=== PATIENT | male | born 1960 | race Caucasian/White ===

== ENCOUNTER 2019-03-22 14:19 | Inpatient (IN) | payer SELFPAY ==
[2019-03-22] MEDS ORDERED: Diltiazem HCl 125 MG, Admixture Fee 1 EACH in Sodium Chloride 0.9% 100 ML IVPB SCH (15:00)
--- NOTE | 2019-03-22 15:00 | RAD ---
Portable chest: HISTORY: Dyspnea COMPARISON: none FINDINGS:Lung blunt are well aerated. There is question of patchy infiltrate in the right lung base. Lungs otherwise appear clear. Heart and mediastinum unremarkable. IMPRESSION:Question patchy right lower lung infiltrate, suboptimally evaluated on this exam. Recommen d upright PA and lateral views of chest.
[2019-03-22 15:19] LABS: #Basophils 0.1 thou/uL (0.0-0.2); #Eosinphils 0.2 thou/uL (0.0-0.7); #Lymphocytes 1.4 thou/uL (1.20-3.40); #Neutrophils 8.2 thou/uL (1.40-6.50); %Basophils 0.5 % (0.0-1.0); %Eosinophils 2.3 % (0.0-10.0); %Lymphocytes 13.3 % (21.0-51.0); %Monocytes 8.8 % (0.0-10.0); %Neutrophils 75.1 % (42.0-75.0); Hemoglobin 15.1 g/dL (14.0-18.0); Mean Corpuscular HGB CONC 34.6 g/dL (32.0-36.0); Mean Corpuscular Hemoglobin 34.3 pg (27.0-31.0); Mean Corpuscular Volume 99.2 fL (78.0-98.0); Mean Platelet Volume 8.5 fL (7.4-10.4); Platelet Count 247 thou/uL (130-400); RBC Distribution Width 11.9 % (11.5-14.5); Red Blood Cell (RBC) Count 4.41 mill/uL (4.70-6.10); White Blood Cell (WBC) Count 10.9 thou/uL (4.8-10.8)
[2019-03-22] MEDS ORDERED: Magnesium 2 GM/50 ML BAG (IN WATER) ONE (15:23)
[2019-03-22 15:26] LABS: INR-International Normal Ratio 1.1; PTT 44.2 SEC (22.9-36.1); Prothrombin Time 14.3 SEC (12.0-14.7)
[2019-03-22 15:34] LABS: D-Dimer Test 5.47 *mcg/mL (0.27-0.43)
[2019-03-22 15:40] LABS: ALT (SGPT) 40 U/L (8-55); AST (SGOT) 35 U/L (5-34); Alkaline Phosphatase 94 U/L (40-110); Anion Gap 13 mmol/L (10-20); BUN (Urea Nitrogen) 18 mg/dL (8.4-25.7); Bilirubin, Total 0.8 mg/dL (0.2-1.2); Calc. Creatinine Clearance 0 mL/min (70-130); Calcium 9.5 mg/dL (7.8-10.44); Carbon Dioxide 26 mmol/L (22-29); Chloride 105 mmol/L (98-107); Estimated GFR-MDRD 77; Globulin 3.4 g/dL (2.4-3.5); Glucose 102 mg/dL (70-105); Potassium 4.3 mmol/L (3.5-5.1); Protein, Total 7.4 g/dL (6.0-8.3); Sodium 140 mmol/L (136-145)
--- NOTE | 2019-03-22 19:04 | CT ---
CT ANGIOGRAM THORAX WITH IV CONTRAST AND 3D RECONSTRUCTIONS: 03/22/19 HISTORY: Shortness of breath and decreased oxygen saturation. History of atrial fibrillation. COMPARISON: None. FINDINGS: There are filling defects seen in multiple right upper lobe segmental and subsegmental pulmonary mariano azeb as well as involving left upper lobe and left lower lobe segmental and subsegmental pulmonary ar teries compatible with multiple pulmonary emboli. There is a small filling defect also seen in the le ft main pulmonary which extends into a left upper lobe pulmonary artery. The thoracic aorta is normal in caliber without aortic dissection. There are scattered lymph nodes in the mediastinum which are not enlarged by CT size criteria. There are linear minimal patchy densities at the right lung base which could be related to atelectasi s, but pneumonitis is a possibility. There is linear atelectasis versus scarring at the left lung bas e. No consolidation or pleural fluid is appreciated. There is incomplete imaging of an exophytic hypodense lesion at the lateral aspect of the mid portion right kidney which does not demonstrate attenuation coefficient compatible with a cyst based on this exam, but this may be artifactual. Nonemergent renal sonogram is recommended for further evaluation. Remainder of the upper abdomen has a grossly normal CT appearance for phase of imaging. IMPRESSION: 1. Bilateral pulmonary emboli. 2. Linear and patchy densities right lung base which may be related to atelectasis, but pneumoni tis cannot be excluded. Follow-up evaluation is suggested to ensure resolution. 3. Hypodense exophytic lesion right kidney which does not demonstrate attenuation coefficient co mpatible with simple renal cyst. However, this attenuation could be artifactual, and follow-up renal sonogram is recommended. 4. Above findings discussed with Dr. Landin in the Emergency Department on 03/22/19 at 1817 [address]. POS: [facility]
[2019-03-22] MEDS ORDERED: Enoxaparin Sodium 100 MG/ML SYRINGE ONE (19:54)
[2019-03-22] MEDS ORDERED: Enoxaparin Sodium 60 MG/0.6 ML SYRINGE ONE ×2 (19:54→19:55)
[2019-03-22 20:04] LABS: Troponin I Less than 0.010 ng/mL (< 0.028)
[2019-03-22 22:50] LABS: Troponin I Less than 0.010 ng/mL (< 0.028)
[2019-03-22] MEDS ORDERED: Ondansetron ODT 4 MG TAB PO PRN (22:55)
[2019-03-22] MEDS ORDERED: Acetaminophen 325 MG TAB PO PRN (22:55)
--- NOTE | 2019-03-22 22:58 | PDOC.HHP ---
Hospitalist HPI - History of Present Illness shortness of breath History of Present Illness: This is a 58 year old male with past medical history of hypertension, atrial fibrillation who presented to the emergency room with worsening shortness of breath. The patient states that he has been short of breath with exertion for the past two weeks. Over the last few days, he has hardly been able to walk twenty feet without getting short of breath. He has some orthopnea and sleeps on four pillows at night for years. He denies PND. He had a cold recently and since then has been having a productive cough of white phlegm. He denies chest pain, palpitations, fevers or chills. The patient recently his and drove for 2.5 days from [place] to [place] to move back in with his mother who is sick. He noticed that his left leg started swelling three days ago and it was painful to walk. He had an artery cauterized previously in that leg 4-5 years ago due to bleeding. He has no history of COPD to his knowledge. He has never smoked, but does chew tobacco. The patient has a prior history of atrial fibrillation and hypertension and states he was on 12 medications back in [place], but stopped them 5-6 years ago because they were making him dizzy. He does not remember the names of the medicines. Since then he has not had any recurrence of atrial fibrillation to his knowledge. He says his atrial fibrillation was diagnosed incidentally when he went in for a broken bone. He does not recall if he was ever on a blood thinner. He denies previous history of CAD. 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 ED Course: Vitals on presentation showed a BP of 153/113, HR of 126, oxygen saturation of 97% on room air, afebrile. The patient had an EKG which showed atrial fibrillation with RVR. Labs showed WBC of 10.9, AST of 35, normal troponins. Chest X ray showed possible RLL infiltrate. CTA shows bilateral pulmonary emboli. The patient was given therapeutic lovenox and started on a diltiazem drip. He was also given duoneb and 2 grams of magnesium. Heart rate is currently in the 90's. Hospitalist ROS - Review of Systems Constitutional: denies: fever, chills ENT: denies: ear pain, ear discharge Respiratory: reports: cough, shortness of breath, SOB with excertion. denies: hemoptysis, pleuritic pain, sputum Cardiovascular: reports: edema. denies: chest pain, palpitations, orthopnea, paroxysmal noc. dyspnea Gastrointestinal: denies: nausea, vomiting, abdominal pain, diarrhea, constipation Genitourinary: denies: dysuria, frequency Musculoskeletal: denies: neck pain, shoulder pain Skin: denies: rash, lesions Neurological: denies: weakness Hospitalist History - Past Medical History Cardiac: reports: AFIB, HTN Musculoskeletal: reports: Other (bones deteriorating right wrist, arthritis in knees and ankles) - Past Surgical History Other Surgical History: Had artery cauterized in left leg 5-6 years ago because it was broken - Family History Other Family History: Brother had atrial fibrillation - Social History Tobacco Type: chewing tobacco Alcohol: reports: Occassional Drugs: reports: none Living Situation: Other (lives with mother) Domestic Violence: Negative Activity level: independent ambulation Other Social History: Patient recently two weeks ago. Was living in [place] and just moved back here two weeks ago. Previously grew up in this area and lives with his mother - Exam General Appearance: NAD, awake alert General - other findings: overweight Eye: PERRL, anicteric sclera ENT: normocephalic atraumatic, no oropharyngeal lesions Neck: supple, symmetric, no JVD, no thyromegaly Heart: no murmur, no gallops, no rubs, irregular Respiratory - other findings: bilateral wheezing Gastrointestinal: soft, non-tender, non-distended Extremities: no cyanosis, no clubbing Extremities - other findings: significant swelling LLE compared to right, tender to palpation Skin: normal turgor, no lesions, no rashes Neurological: cranial nerve grossly intact, normal sensation to touch, no focal deficits, no new deficit Musculoskeletal: normal tone, normal strength, no muscle wasting Psychiatric: normal affect, normal behavior, A&O x 3, oriented to person Hospitalist Results - Labs Result Diagrams: 03/22/19 15:09 03/22/19 15:09 Lab results: WBC 10.9 thou/uL (4.8-10.8) H 03/22/19 15:09 Hgb 15.1 g/dL (14.0-18.0) 03/22/19 15:09 Hct 43.7 % (42.0-52.0) 03/22/19 15:09 MCV 99.2 fL (78.0-98.0) H 03/22/19 15:09 Plt Count 247 thou/uL (130-400) 03/22/19 15:09 Neutrophils % 75.1 % (42.0-75.0) H 03/22/19 15:09 Sodium 140 mmol/L (136-145) 03/22/19 15:09 Potassium 4.3 mmol/L (3.5-5.1) 03/22/19 15:09 Chloride 105 mmol/L (98-107) 03/22/19 15:09 Carbon Dioxide 26 mmol/L (22-29) 03/22/19 15:09 BUN 18 mg/dL (8.4-25.7) 03/22/19 15:09 Creatinine 1.00 mg/dL (0.7-1.3) 03/22/19 15:09 Glucose 102 mg/dL (70-105) 03/22/19 15:09 Lactic Acid 1.5 mmol/L (0.5-2.2) 03/22/19 15:09 Calcium 9.5 mg/dL (7.8-10.44) 03/22/19 15:09 Total Bilirubin 0.8 mg/dL (0.2-1.2) 03/22/19 15:09 AST 35 U/L (5-34) H 03/22/19 15:09 ALT 40 U/L (8-55) 03/22/19 15:09 Alkaline Phosphatase 94 U/L (40-110) 03/22/19 15:09 Troponin I Less than 0.010 ng/mL (< 0.028) 03/22/19 22:17 B-Natriuretic Peptide 38.4 pg/mL (0-100) 03/22/19 15:09 Serum Total Protein 7.4 g/dL (6.0-8.3) 03/22/19 15:09 Albumin 4.0 g/dL (3.5-5.0) 03/22/19 15:09 - EKG Interpretation EKG: atrial fibrillation with RVR Hospitalist H&P A/P - Plan Plan: Chest X ray: patchy right lower lung infiltrate CTA thorax: bilateral pulmonary emboli, patchy densities right lung base, simple renal cyst This is a 58 year old male with past medical history of hypertension, atrial fibrillation, who presented to the ER with shortness of breath for the past few weeks and left lower extremity swelling for the past three days, found to be in atrial fibrillation with RVR and admitted for PE #Bilateral pulmonary emboli #Peripheral edema worst on LLE - CTA showing bilateral pulmonary emboli - start lovenox 170 mg SC BID, transition to oral can be done eventually - check bilateral dopplers - ECHO. BNP was only 38 so will hold diuretics #Possible RLL pneumonia vs acute bronchitis - has productive cough with significant wheezing, Xray showing possible infiltrate right lower lung. WBC of 10.9 - check viral panel given recent cold - will administer IV levaquin, standing duoneb and prn albuterol, mucinex, and steroids #Atrial fibrillation secondary to PE #Hypertensive urgency - HR in the 120's on admission, BP 156/113 - currently on cardizem drip, will attempt to wean off by adding oral diltiazem - troponin negative times three - will check ECHO - cardiology consult - needs long-term anticoagulation, CHADSVASC 3 #Leukocytosis - possibly pneumonia - WBC of 10.9, will check blood cultures. CTA showing possible RLL pneumonia, start IV levaquin - check UA - check viral panel #Possible renal cyst - will further evaluate with renal ultrasound GI prophylaxis: famotidine DVT prophylaxis: lovenox Code status: full code
[2019-03-22] MEDS ORDERED: Albuterol Sulfate 1.25 MG/3 ML NEB NEB PRN (23:11)
[2019-03-22] MEDS ORDERED: Benzonatate 100 MG CAP PO PRN (23:13)
[2019-03-22] MEDS ORDERED: methylPREDNISolone Sod Succ 40 MG VIAL IVP SCH (23:15)
[2019-03-22] MEDS ORDERED: guaiFENesin ER 600 MG TAB PO SCH (23:30)
[2019-03-23 00:55] VITALS: BMI 48.2
[2019-03-23 01:48] LABS: Bacteria/HPF None Seen HPF (None Seen); Bilirubin Negative (Negative); Blood, Urine Negative (Negative); Clarity Clear (Clear); Glucose, Urine (Dipstick) Normal (Negative); Leukocyte Negative Leu/uL (Negative); Mucous/LPF Rare LPF (<2+); Nitrite Negative (Negative); Protein, Urine (Dipstick) 10 mg/dL (Neg-Trace); RBC/HPF 0-3 HPF (0-3); Squamous Epithelial 0-3 HPF (0-3); Urobilinogen Normal mg/dL (Less than 2); WBC/HPF 0-3 HPF (0-3)
[2019-03-23 01:50] LABS: Urine Culture Reflex No No
[2019-03-23 04:07] LABS: #Eosinphils 0.2 thou/uL (0.0-0.7); #Lymphocytes 1.3 thou/uL (1.20-3.40); #Monocytes 0.6 thou/uL (0.11-0.59); #Neutrophils 7.8 thou/uL (1.40-6.50); %Basophils 0.4 % (0.0-1.0); %Eosinophils 2.4 % (0.0-10.0); %Lymphocytes 12.8 % (21.0-51.0); %Monocytes 5.5 % (0.0-10.0); Hemoglobin 13.8 g/dL (14.0-18.0); Mean Corpuscular HGB CONC 34.7 g/dL (32.0-36.0); Mean Corpuscular Hemoglobin 34.5 pg (27.0-31.0); Mean Corpuscular Volume 99.4 fL (78.0-98.0); Mean Platelet Volume 8.4 fL (7.4-10.4); Platelet Count 224 thou/uL (130-400); RBC Distribution Width 11.5 % (11.5-14.5); Red Blood Cell (RBC) Count 4.01 mill/uL (4.70-6.10); White Blood Cell (WBC) Count 9.9 thou/uL (4.8-10.8)
[2019-03-23 04:24] LABS: Anion Gap 13 mmol/L (10-20); BUN (Urea Nitrogen) 15 mg/dL (8.4-25.7); Calc. Creatinine Clearance 232 mL/min (70-130); Calcium 8.9 mg/dL (7.8-10.44); Carbon Dioxide 25 mmol/L (22-29); Chloride 106 mmol/L (98-107); Estimated GFR-MDRD Greater than 90; Glucose 98 mg/dL (70-105); Potassium 4.3 mmol/L (3.5-5.1); Sodium 140 mmol/L (136-145)
[2019-03-23 04:28] LABS: ALT (SGPT) 36 U/L (8-55); AST (SGOT) 32 U/L (5-34); Albumin 3.6 g/dL (3.5-5.0); Alkaline Phosphatase 85 U/L (40-110); Bilirubin, Direct 0.6 mg/dL (0.1-0.3); Bilirubin, Total 1.2 mg/dL (0.2-1.2); Protein, Total 6.7 g/dL (6.0-8.3)
[2019-03-23] MEDS ORDERED: Enoxaparin Sodium 80 MG/0.8 ML SYRINGE SC SCH (07:00)
[2019-03-23] MEDS ORDERED: predniSONE 20 MG TAB PO SCH (08:00)
--- NOTE | 2019-03-23 09:31 | ULT ---
BILATERAL LOWER EXTREMITY ULTRASOUND WITH VENOUS DOPPLER DUPLEX: CPT: 56133 ICD-10-PCS: B54D INDICATIONS: Edema. TECHNIQUE: Color-flow Doppler, spectral wave-form analysis of pulsed Doppler and francois-scale imaging with leila lev and augmentation were used to evaluate the bilateral common femoral, femoral, popliteal, posteri or tibial and superficial femoral veins and the proximal portions of the profunda femoral and greater saphenous veins. FINDINGS: There is appropriate compressibility and flow within the imaged deep venous system of each lower extr emity. Note is made that the posterior tibial vein in the left lower extremity is not visualized for comment. IMPRESSION: No deep venous thrombosis is demonstrated within limitations. POS: [facility]
--- NOTE | 2019-03-23 09:33 | CON ---
DATE OF CONSULTATION: REASON FOR CONSULTATION: Chronic atrial fibrillation with rapid ventricular response. HISTORY OF PRESENT ILLNESS: Mr. Galeana is a 58-year-old gentleman with history of chronic atrial fibrillation. He states he has had atrial fibrillation over the last 5 years. He has been on Coumadin therapy and medications for rate control, but states it caused dizziness. He abruptly stopped all his medications several years ago. He states he was not able to work. Recently, he moved from [place] after his . He had a long car trip. He developed lower extremity edema and shortness of breath. He was diagnosed with bilateral PE. PAST MEDICAL HISTORY: Hypertension, atrial fibrillation, morbid obesity, and likely obstructive sleep apnea. FAMILY HISTORY: Negative for CAD. SOCIAL HISTORY: Positive for chewing tobacco. Occasional alcohol use. He is morbidly obese. REVIEW OF SYSTEMS: A 10-point review of systems is reviewed as above, otherwise negative. PHYSICAL EXAMINATION: GENERAL: He does appear disheveled and morbidly obese. VITAL SIGNS: Blood pressure 144/94, pulse 83, and temperature afebrile. He is currently on IV Cardizem at 5 mg/hour. NEUROLOGIC: The patient is alert and oriented x3 with no focal neurologic deficits. HEENT: Sclerae without icterus. Mouth has moist mucous membranes with normal pallor. NECK: No JVD. Carotid upstroke brisk. No bruits bilaterally. LUNGS: Clear to auscultation with unlabored respirations. BACK: No scoliosis or kyphosis. CARDIAC: Irregularly irregular. ABDOMEN: Soft, nontender, nondistended. No peritoneal signs present. No hepatosplenomegaly. No abnormal striae. EXTREMITIES: 2+ femoral and 2+ dorsalis pedis pulses. No cyanosis, clubbing, or edema. SKIN: No gross abnormalities. PERTINENT LABORATORY DATA: Hemoglobin 13.8 and hematocrit 39.9. Creatinine 0.79. Troponin negative. IMPRESSION: 1. Atrial fibrillation with rapid ventricular response. 2. Recently diagnosed pulmonary embolism. 3. Likely obstructive sleep apnea. 4. Morbid obesity. RECOMMENDATIONS: At this point, we will recommend continue rate control. We will try and increase Cardizem p.o. and wean off the IV Cardizem. We will give him one dose of IV digoxin. Once he is rate controlled, it will be okay to discontinue IV and follow up as outpatient. He will also need anticoagulation therapy chronically for recent PE and DVT in addition to atrial fibrillation. He will also need an outpatient sleep study. Job ID: [id number]
[2019-03-23] MEDS: guaiFENesin ER 600 MG TAB PO SCH ×2 (09:40→20:54)
[2019-03-23] MEDS: Enoxaparin Sodium 80 MG/0.8 ML SYRINGE SC SCH ×2 (09:40→20:57)
[2019-03-23] MEDS: Famotidine 20 MG TAB PO SCH ×2 (09:41→20:54)
--- NOTE | 2019-03-23 09:44 | ULT ---
BILATERAL RENAL ULTRASOUND: INDICATIONS: Renal cyst. FINDINGS: No evidence of hydronephrosis of either kidney. An exophytic hypoechoic focus without evidence of int ernal flow and through transmission of sound is present at the lateral confines of the right kidney, mid portion. This does indicate a benign cyst. Urinary bladder is grossly unremarkable. IMPRESSION: Benign appearing exophytic cyst about the lateral confines of the mid right kidney. Cyst measures willard roximately 3 cm. POS: [facility]
--- NOTE | 2019-03-23 13:39 | CON ---
DATE OF CONSULTATION: 03/23/2019 REASON FOR CONSULTATION: Pulmonary embolism. HISTORY OF PRESENT ILLNESS: Mr. Galeana is a 58-year-old male, who presented with shortness of breath, chest pain, and tachycardia. He was found to be in atrial fibrillation with rapid ventricular response. He was also found to have bilateral pulmonary emboli on his CT scan. He has never had pulmonary emboli in the past, but did have AFib over 5 years ago. He was treated with rate control and anticoagulation, but stopped the medication shortly thereafter because he was dizzy. PAST MEDICAL HISTORY: 1. Atrial fibrillation. 2. Hypertension. Denies diabetes. Denies coronary artery disease. PAST SURGICAL HISTORY: Artery cauterized in his leg 5 to 6 years ago. SOCIAL HISTORY: He chews tobacco. He does not smoke. Does not consume alcohol. from his . He has recently moved back to [place] from [place]. His occupation is mechanical systems designer. REVIEW OF SYSTEMS: Remarkable for obesity. No fever, chills, nausea, vomiting, hematemesis, melena, hematochezia, hematuria, or dysuria. PHYSICAL EXAMINATION: VITAL SIGNS: Temperature 98.4, pulse 97, blood pressure 166/125, and O2 saturation 94%. GENERAL: He is a morbidly obese male, who is 5 feet and 11 inches and is 346 pounds. HEENT: He has class IV Mallampati airway. NECK: Without adenopathy or JVD. LUNGS: Clear without wheezing. CARDIAC: S1 and S2. Irregularly irregular. ABDOMEN: Soft, morbidly obese. EXTREMITIES: No clubbing or cyanosis. He has brawny edema throughout. LABORATORY DATA: White blood cell count 9.9, hematocrit 39.9, and platelet count 224. INR is 1.1. Sodium 140, potassium 4.3, chloride 106, CO2 of 25, BUN 15, creatinine 0.7, and glucose 98. ASSESSMENT: 1. Pulmonary embolism. I have reviewed the CT scan and agree with radiologist's findings. 2. Atrial fibrillation. 3. Obesity. 4. Probable underlying obstructive sleep apnea. RECOMMENDATIONS: 1. For the pulmonary embolism, I would recommend 6 months of anticoagulation. Of course, if he continues atrial fibrillation, he will be anticoagulated indefinitely. I would recommend switching him over to one of the novel anticoagulants if possible. It looks like he may be uninsured, so that may be a difficult task. 2. At some point in the future, I would recommend a sleep study. 3. It is not clear to me why he is on the steroids. I do not suspect that he is infected. Thank you for the consultation. Please recall if further assistance needed. Job ID: [id number]
--- NOTE | 2019-03-23 18:42 | PDOC.HOSPP ---
- Subjective Encounter Date: 03/23/19 Encounter Time: 17:00 Subjective: Patient seen and examined for resp failure/PE. SOB improving. No CP. No new complaints. No overnight events - Objective Vital Signs & Weight: Vital Signs (12 hours) Temp Pulse Pulse Pulse Resp BP BP 03/23/19 18:14 111 H 16 03/23/19 16:05 97.7 F 03/23/19 15:06 98 13 03/23/19 11:16 98.4 F 03/23/19 11:14 100 14 03/23/19 10:35 100 108 H 163/119 H 169/115 H 03/23/19 08:16 03/23/19 08:13 100 14 03/23/19 08:00 03/23/19 07:14 98.0 F Pulse Ox Pulse Ox Pulse Ox 03/23/19 18:14 96 03/23/19 16:05 03/23/19 15:06 95 03/23/19 11:16 03/23/19 11:14 03/23/19 10:35 93 L 95 03/23/19 08:16 93 L 03/23/19 08:13 96 03/23/19 08:00 97 03/23/19 07:14 Weight Weight 346 lb Most Recent Monitor Data Heart Rate from ECG 110 NIBP 159/117 NIBP BP-Mean 131 Respiration from ECG 19 SpO2 94 I&O: 03/22/19 03/23/19 03/24/19 06:59 06:59 06:59 Intake Total 200 Output Total 650 Balance -450 Result Diagrams: 03/23/19 03:24 03/23/19 03:24 Radiology Reviewed by me: Yes (CTA - PE) EKG Reviewed by me: Yes (Tele Afib) Hospitalist ROS - Review of Systems Respiratory: reports: SOB with excertion. denies: cough, dry, shortness of breath, hemoptysis, pleuritic pain, sputum, wheezing, other Cardiovascular: denies: chest pain, palpitations, orthopnea, paroxysmal noc. dyspnea, edema, light headedness, other - Medication Medications: Active Medications Generic Name Dose Route Start Last Admin Trade Name Freq PRN Reason Stop Dose Admin Albuterol/Ipratropium 3 ml 03/23/19 02:30 03/23/19 18:14 Duoneb IPPB 3 ml [id number] DECLAN Administration Diltiazem HCl 60 mg 03/23/19 12:00 03/23/19 17:35 Cardizem PO 60 mg Q6HR DECLAN Administration Enoxaparin Sodium 150 mg 03/23/19 09:00 03/23/19 09:40 Lovenox SC 150 mg 0900,2100 DECLAN Administration Famotidine 20 mg 03/23/19 09:00 03/23/19 09:41 Pepcid PO 20 mg BID DECLAN Administration Guaifenesin 600 mg 03/23/19 09:00 03/23/19 09:40 Mucinex PO 600 mg Q12HR DECLAN Administration Levofloxacin 750 mg/ Device 150 mls @ 100 mls/hr 03/22/19 23:59 03/23/19 01: 25 IVPB 150 mls Q24HR DECLAN Administration Prednisone 40 mg 03/23/19 08:00 03/23/19 09:41 Prednisone PO 40 mg QAM-WM DECLAN Administration - Exam General Appearance: NAD Heart: no murmur, no gallops, no rubs, irregular Respiratory: no wheezes, no rales, no ronchi, normal chest expansion Gastrointestinal: non-tender, non-distended, normal bowel sounds, no guarding, no rigidity Extremities: no cyanosis, no clubbing, 2+ LE edema Neurological: no new deficit Psychiatric: normal affect, A&O x 3 Hosp A/P - Plan Acute hypoxic resp failure (POA) B/L PE (POA) Afib with RVR - requiring Cardizem drip ?Acute Bronchitis (POA) Renal cyst Morbid obesity BMI 48.3 HTN CKD 2 ?MAAME PLAN: Cont PO Cardizem Cont Lovenox - Patient understands the risk associated with anticoag Change IV Levaquin to PO Doxycycline Cont Nebs Doppler - No DVT Echo normal EF Sleep study as outpt Cardio/Pulm input appreciated
[2019-03-23] MEDS: Doxycycline 100 MG CAP PO SCH (20:54)
[2019-03-24 04:05] LABS: Hemoglobin 13.2 g/dL (14.0-18.0); Platelet Count 218 thou/uL (130-400)
[2019-03-24 04:26] LABS: Anion Gap 14 mmol/L (10-20); BUN (Urea Nitrogen) 19 mg/dL (8.4-25.7); Calc. Creatinine Clearance 206 mL/min (70-130); Calcium 8.8 mg/dL (7.8-10.44); Carbon Dioxide 25 mmol/L (22-29); Chloride 106 mmol/L (98-107); Estimated GFR-MDRD 88; Glucose 117 mg/dL (70-105); Potassium 3.8 mmol/L (3.5-5.1); Sodium 141 mmol/L (136-145)
[2019-03-24] MEDS: Enoxaparin Sodium 80 MG/0.8 ML SYRINGE SC SCH ×2 (09:41→21:41)
[2019-03-24] MEDS: Famotidine 20 MG TAB PO SCH ×2 (09:41→21:41)
[2019-03-24] MEDS: guaiFENesin ER 600 MG TAB PO SCH ×2 (09:41→21:41)
[2019-03-24] MEDS: Doxycycline 100 MG CAP PO SCH ×2 (09:41→21:40)
[2019-03-24] MEDS ORDERED: Digoxin 0.25 MG TAB PO SCH (10:30)
--- NOTE | 2019-03-24 10:35 | PRG ---
DATE OF SERVICE: SUBJECTIVE: Mr. Galeana is feeling better. No chest pain or pressure. OBJECTIVE: VITAL SIGNS: His heart rate is well controlled at rest. When he even moves around the bed, it goes up to 120-130 range. LUNGS: Clear. CARDIAC: Irregularly irregular. ABDOMEN: Obese, nontender. EXTREMITIES: Moderate chronic edema. ASSESSMENT: 1. Chronic atrial fibrillation. The rate is still increased. 2. Recent pulmonary embolism. PLAN: 1. He is being anticoagulated. 2. We will add digoxin. 3. Change to Cardizem long-acting tomorrow. The patient could be moved to telemetry from our standpoint. Job ID: [id number]
--- NOTE | 2019-03-24 11:11 | PDOC.HOSPP ---
- Subjective Encounter Date: 03/24/19 Encounter Time: 11:09 Subjective: Mr. Galeana was seen today in follow-up of bilateral PE. He says he notes dyspnea with exertion, but admits some improvement at rest. He denies chest pain. - Objective Vital Signs & Weight: Vital Signs (12 hours) Temp Pulse Resp Pulse Ox 03/24/19 10:20 98.5 F 03/24/19 07:43 97 03/24/19 07:40 84 16 97 03/24/19 07:35 98 03/24/19 07:15 97.5 F L 03/24/19 03:31 97.9 F 03/24/19 02:17 98 23 H 97 03/24/19 01:26 94 L 03/23/19 23:30 98.5 F Weight Weight 346 lb Most Recent Monitor Data Heart Rate from ECG 102 NIBP 158/118 NIBP BP-Mean 131 Respiration from ECG 20 SpO2 96 I&O: 03/23/19 03/24/19 03/25/19 06:59 06:59 06:59 Intake Total 200 240 Output Total 650 400 Balance -450 -160 Result Diagrams: 03/24/19 03:52 03/24/19 03:52 Hospitalist ROS - Medication Medications: Active Medications Generic Name Dose Route Start Last Admin Trade Name Freq PRN Reason Stop Dose Admin Albuterol/Ipratropium 3 ml 03/23/19 02:30 03/24/19 07:40 Duoneb IPPB 3 ml [id number] DECLAN Administration Diltiazem HCl 60 mg 03/23/19 12:00 03/24/19 05:27 Cardizem PO 60 mg Q6HR DECLAN Administration Doxycycline Hyclate 100 mg 03/23/19 21:00 03/24/19 09:41 Vibramycin PO 100 mg BID DECLAN Administration Enoxaparin Sodium 150 mg 03/23/19 09:00 03/24/19 09:41 Lovenox SC 150 mg 0900,2100 DECLAN Administration Famotidine 20 mg 03/23/19 09:00 03/24/19 09:41 Pepcid PO 20 mg BID DECLAN Administration Guaifenesin 600 mg 03/23/19 09:00 03/24/19 09:41 Mucinex PO 600 mg Q12HR DECLAN Administration - Exam Eye: PERRL Heart: no murmur, no gallops, no rubs, normal peripheral pulses, irregular Respiratory: CTAB (with the exception of wheeaing, scattered, and some coarse breath sounds), wheezes Gastrointestinal: soft, non-tender, non-distended, normal bowel sounds, no palpable masses, no hepatomegaly Extremities: no cyanosis, no edema Hosp A/P (1) Acute respiratory failure with hypoxemia Code(s): J96.01 - ACUTE RESPIRATORY FAILURE WITH HYPOXIA Status: Acute (2) Pulmonary embolism, bilateral Code(s): I26.99 - OTHER PULMONARY EMBOLISM WITHOUT ACUTE COR PULMONALE Status : Acute (3) Atrial fibrillation Code(s): I48.91 - UNSPECIFIED ATRIAL FIBRILLATION Status: Acute (4) Obesity, morbid, BMI 40.0-49.9 Code(s): E66.01 - MORBID (SEVERE) OBESITY DUE TO EXCESS CALORIES Status: Chronic (5) Hypertension Code(s): I10 - ESSENTIAL (PRIMARY) HYPERTENSION Status: Chronic (6) Acute bronchitis Code(s): J20.9 - ACUTE BRONCHITIS, UNSPECIFIED Status: Acute - Plan * Acute Bilateral Pulmonary Embolus- continue Lovenox for now. Discussed Coumadin vs. DOAC's. the risk benefits and cost discussed. The patient has decided on trying one of the DOAC's. Will see which sample we have for 30 day supply, and switch him over tomorrow * Echo results noted * AFIB- his heart rate is better- continue Digoxin, and Cardizem * HTN- blood pressure is elevated- hopefully will improve with Cardizem- will monitor * Acute bronchitis- continue Levaquin for presumed bronchitis
[2019-03-25] MEDS: Enoxaparin Sodium 80 MG/0.8 ML SYRINGE SC SCH ×2 (09:54→13:03)
[2019-03-25] MEDS: Doxycycline 100 MG CAP PO SCH ×2 (09:54→20:56)
[2019-03-25] MEDS: Digoxin 0.25 MG TAB PO SCH (09:55)
[2019-03-25] MEDS: Famotidine 20 MG TAB PO SCH ×2 (09:55→20:56)
[2019-03-25] MEDS: guaiFENesin ER 600 MG TAB PO SCH ×2 (09:55→20:57)
--- NOTE | 2019-03-25 10:01 | PDOC.HOSPP ---
- Subjective Encounter Date: 03/25/19 Encounter Time: 09:59 Subjective: Mr. Galeana was seen today in follow-up of bilateral PE. He still gets very short of breath with minimal tasks, like taking a shower. - Objective Vital Signs & Weight: Vital Signs (12 hours) Temp Pulse Resp Pulse Ox 03/25/19 09:55 90 03/25/19 08:00 97 03/25/19 07:28 97.8 F 03/25/19 07:17 90 16 03/25/19 03:38 98.0 F 03/25/19 02:50 83 16 94 L 03/24/19 23:39 98.8 F 03/24/19 22:33 93 20 99 Weight Weight 346 lb Most Recent Monitor Data Heart Rate from ECG 86 NIBP 148/96 NIBP BP-Mean 113 Respiration from ECG 15 SpO2 95 I&O: 03/24/19 03/25/19 03/26/19 06:59 06:59 06:59 Intake Total 240 960 Output Total 400 900 Balance -160 60 Result Diagrams: 03/24/19 03:52 03/24/19 03:52 Hospitalist ROS - Medication Medications: Active Medications Generic Name Dose Route Start Last Admin Trade Name Freq PRN Reason Stop Dose Admin Albuterol/Ipratropium 3 ml 03/23/19 02:30 03/25/19 07:17 Duoneb IPPB 3 ml [id number] DECLAN Administration Digoxin 0.25 mg 03/25/19 09:00 03/25/19 09:55 Lanoxin PO 0.25 mg DAILY DECLAN Administration Diltiazem HCl 60 mg 03/23/19 12:00 03/25/19 06:15 Cardizem PO 60 mg Q6HR DECLAN Administration Doxycycline Hyclate 100 mg 03/23/19 21:00 03/25/19 09:54 Vibramycin PO 100 mg BID DECLAN Administration Famotidine 20 mg 03/23/19 09:00 03/25/19 09:55 Pepcid PO 20 mg BID DECLAN Administration Guaifenesin 600 mg 03/23/19 09:00 03/25/19 09:55 Mucinex PO 600 mg Q12HR DECLAN Administration - Exam Eye: PERRL Neck: supple Heart: no murmur, no gallops, no rubs, normal peripheral pulses, irregular Respiratory: wheezes (Bilateral wheezing, no rales no rhonchi) Gastrointestinal: soft, non-tender, non-distended, normal bowel sounds, no palpable masses, no hepatomegaly Extremities: 2+ LE edema (+ varicose veins bilaterally) Hosp A/P (1) Acute respiratory failure with hypoxemia Code(s): J96.01 - ACUTE RESPIRATORY FAILURE WITH HYPOXIA Status: Acute (2) Pulmonary embolism, bilateral Code(s): I26.99 - OTHER PULMONARY EMBOLISM WITHOUT ACUTE COR PULMONALE Status : Acute (3) Atrial fibrillation Code(s): I48.91 - UNSPECIFIED ATRIAL FIBRILLATION Status: Acute (4) Obesity, morbid, BMI 40.0-49.9 Code(s): E66.01 - MORBID (SEVERE) OBESITY DUE TO EXCESS CALORIES Status: Chronic (5) Hypertension Code(s): I10 - ESSENTIAL (PRIMARY) HYPERTENSION Status: Chronic (6) Acute bronchitis Code(s): J20.9 - ACUTE BRONCHITIS, UNSPECIFIED Status: Acute - Plan * Acute Bilateral Pulmonary Embolus- Will start Eliquis today 10mg twice a day for 7 days followed by 5mg twice a day * Continue to try to wean oxygen * He may have underlying COPD- I recommend outpatient PFT's- continue Duonebs, and empiric antibiotics * He may need home Oxygen on the basis of probable COPD * AFIB- his heart rate is stable- continue Digoxin, and Cardizem * HTN- blood pressure is better * Acute bronchitis- continue Levaquin for presumed bronchitis
--- NOTE | 2019-03-25 11:17 | PRG ---
DATE OF SERVICE: 03/25/2019 SUBJECTIVE: Mr. Galeana is feeling okay, but he gets short of breath on minimal activity. No chest pain or pressure. OBJECTIVE: VITAL SIGNS: Blood pressure 148/96. Pulse 90 to 110, but when he moves around in the bed, it goes to 110 to 120. LUNGS: Clear. CARDIAC: Irregularly irregular. ABDOMEN: Obese and nontender. EXTREMITIES: There is mild to moderate chronic edema. ASSESSMENT: 1. Chronic atrial fibrillation with rate still increases with activity. 2. Recent pulmonary embolism. PLAN: 1. Change to the long-acting Cardizem. 2. He is on digoxin. 3. Waiting for telemetry bed. Job ID: [id number]
[2019-03-25] MEDS: Apixaban 5 MG TAB PO SCH ×2 (13:03→20:56)
[2019-03-26] MEDS ORDERED: Lisinopril 5 MG TAB PO SCH (09:00)
[2019-03-26] MEDS: Apixaban 5 MG TAB PO SCH (09:05)
[2019-03-26] MEDS: Doxycycline 100 MG CAP PO SCH (09:05)
[2019-03-26] MEDS: guaiFENesin ER 600 MG TAB PO SCH (09:05)
[2019-03-26] MEDS: Digoxin 0.25 MG TAB PO SCH (09:06)
[2019-03-26] MEDS: Famotidine 20 MG TAB PO SCH (09:06)
--- NOTE | 2019-03-26 09:28 | PDOC.HOSPP ---
- Subjective Encounter Date: 03/26/19 Encounter Time: 09:26 Subjective: Mr. Galeana was seen today in follow-up of Pulmonary Embolus. He is still short of breath with exertion, but notes some improvement. - Objective Vital Signs & Weight: Vital Signs (12 hours) Temp Pulse Resp Pulse Ox 03/26/19 09:06 103 H 03/26/19 07:50 95 03/26/19 07:23 86 22 H 03/26/19 07:14 97.4 F L 03/26/19 03:15 97.7 F 03/26/19 02:52 96 15 97 03/25/19 23:31 98.8 F 03/25/19 23:20 103 H 16 97 Weight Weight 336 lb 3 oz Most Recent Monitor Data Heart Rate from ECG 82 NIBP 140/91 NIBP BP-Mean 107 Respiration from ECG 15 SpO2 96 I&O: 03/25/19 03/26/19 03/27/19 06:59 06:59 06:59 Intake Total 960 1340 Output Total 900 500 Balance 60 840 Result Diagrams: 03/24/19 03:52 03/24/19 03:52 Hospitalist ROS - Medication Medications: Active Medications Generic Name Dose Route Start Last Admin Trade Name Freq PRN Reason Stop Dose Admin Albuterol/Ipratropium 3 ml 03/23/19 02:30 03/26/19 07:23 Duoneb IPPB 3 ml [id number] DECLAN Administration Apixaban 10 mg 03/25/19 21:00 03/26/19 09:05 Eliquis PO 10 mg BID DECLAN Administration Digoxin 0.25 mg 03/25/19 09:00 03/26/19 09:06 Lanoxin PO 0.25 mg DAILY DECLAN Administration Diltiazem HCl 240 mg 03/26/19 09:00 03/26/19 09:06 Cardizem Cd PO 240 mg DAILY DECLAN Administration Doxycycline Hyclate 100 mg 03/23/19 21:00 03/26/19 09:05 Vibramycin PO 100 mg BID DECLAN Administration Famotidine 20 mg 03/23/19 09:00 03/26/19 09:06 Pepcid PO 20 mg BID DECLAN Administration Guaifenesin 600 mg 03/23/19 09:00 03/26/19 09:05 Mucinex PO 600 mg Q12HR DECLAN Administration - Exam Eye: PERRL, anicteric sclera Heart: no murmur, no gallops, no rubs, normal peripheral pulses, irregular Respiratory: rales, wheezes (+ bilateral wheezing and rales at the bases) Gastrointestinal: soft, non-tender, non-distended, normal bowel sounds, no palpable masses, no hepatomegaly, no splenomegaly, no guarding, no rigidity Extremities: 2+ LE edema (+ bilateral lower extremity edema, and venous stasis changes in the left leg) Hosp A/P (1) Acute respiratory failure with hypoxemia Code(s): J96.01 - ACUTE RESPIRATORY FAILURE WITH HYPOXIA Status: Acute (2) Pulmonary embolism, bilateral Code(s): I26.99 - OTHER PULMONARY EMBOLISM WITHOUT ACUTE COR PULMONALE Status : Acute (3) Atrial fibrillation Code(s): I48.91 - UNSPECIFIED ATRIAL FIBRILLATION Status: Acute (4) Obesity, morbid, BMI 40.0-49.9 Code(s): E66.01 - MORBID (SEVERE) OBESITY DUE TO EXCESS CALORIES Status: Chronic (5) Hypertension Code(s): I10 - ESSENTIAL (PRIMARY) HYPERTENSION Status: Chronic (6) Acute bronchitis Code(s): J20.9 - ACUTE BRONCHITIS, UNSPECIFIED Status: Acute - Plan * Acute Bilateral Pulmonary Embolus- continue Eliquis * He is down to 1 liter of oxygen- he tells me he has access to oxygen at home if needed * He may have underlying COPD- continue Duonebs, and Doxycycline- will give him a dose of Prednisone X1 * He may need home Oxygen on the basis of probable COPD * AFIB- his heart rate is stable- continue Digoxin, and Cardizem * HTN- blood pressure is still trending relatively high- will add Lisinopril * Acute bronchitis- continue Doxycycline ( not Levaquin) for bronchitis * Hopefully home later today- if ok with Cardiology
[2019-03-26 09:45] VITALS: BP 152/119
[2019-03-26] MEDS ORDERED: predniSONE 20 MG TAB PO SCH (09:45)
--- NOTE | 2019-03-26 15:13 | PRG ---
DATE OF SERVICE: 03/26/2019 SUBJECTIVE: Mr. Galeana is sitting up in the bedside, doing well. No complaints. OBJECTIVE: VITAL SIGNS: His blood pressure is 150/90, pulse in the 90s, atrial fibrillation. LUNGS: Clear. CARDIAC: Irregularly irregular. ABDOMEN: Soft, nontender. EXTREMITIES: There is chronic edema. ASSESSMENT: 1. Atrial fibrillation, persistent, rate controlled. 2. Recent pulmonary embolism. PLAN: 1. The patient is on diltiazem orally 240 mg a day. 2. He is on apixaban for pulmonary embolism dose. 3. Lisinopril 5 mg a day. 4. Digoxin 0.25 mg a day. Plan, we will reduce digoxin to 0.125 mg a day tomorrow for maintenance. 5. Increase lisinopril to 10 mg a day. 6. Continue Eliquis. 7. The patient can be released home from a cardiac standpoint. He will need to follow up with Dr. Schilling in our office. Dr. Schillign will be his primary crystal growing technician. Job ID: [id number]
[2019-03-26 16:19] VITALS: TEMP 98.4
--- NOTE | 2019-03-26 23:25 | DIS ---
DATE OF ADMISSION: 03/22/2019 DATE OF DISCHARGE: 03/26/2019 DISCHARGE DISPOSITION: Home. PRIMARY DISCHARGE DIAGNOSES: 1. Acute bilateral pulmonary embolism. 2. Probable chronic obstructive pulmonary disease. 3. Acute on chronic respiratory failure with hypoxemia. 4. Atrial fibrillation. 5. Hypertension. 6. Chronic anticoagulation. DISCHARGE MEDICATIONS: 1. Eliquis 10 mg twice daily followed by 5 mg twice a day. 2. The patient was given one month sample of the medication, digoxin 0.125 mg p.o. daily. 3. Cardizem CD 240 mg daily. 4. Doxycycline 100 mg twice a day for seven days. 5. Lisinopril 10 mg daily. 6. Albuterol nebs q.6 as needed. PROCEDURES DONE AND IMAGING DURING ADMISSION: The patient had a CT angiogram of the chest, which was significant for bilateral pulmonary emboli. The patient had a linear patchy densities in the right lung base, which could represent atelectasis or pneumonia was not excluded. The patient also had an echocardiogram in which the ejection fraction was estimated at 45% to 50%. Diastolic function could not be assessed due to atrial fibrillation. The left atrium was severely dilated. The patient also had a renal ultrasound in which the patient had a benign appearing exophytic cyst in the mid right kidney. HOSPITAL COURSE: Mr. Galeana is a pleasant 58-year-old gentleman, who presented to the emergency room complaining of cough and shortness of breath. He was evaluated in the ER and found to be hypoxic. CT angiogram revealed bilateral pulmonary embolisms. He had a recent long car ride from [place] to [place], which could have been the precipitating factor. He also has a left leg, which has chronic venous stasis and quite a bit of varicose veins. He was started on Eliquis after being on Lovenox for several days. The risks and benefits, as well as side effects and cost were discussed with regard to Coumadin and the direct acting anticoagulants such as Xarelto and Eliquis. After this discussion, the patient decided on Eliquis. We gave him a month's supply of medications to get him started. He also likely has some undiagnosed COPD and for this reason, he has been placed on DuoNeb and a short course of antibiotics. He also developed atrial fibrillation during his hospital stay and his heart rate was controlled with Cardizem and digoxin. Eliquis will serve as an anticoagulation for this as well. The patient plans to see Dr. Lane in the outpatient setting. He admits he had not seen him in quite some time, but has been instructed to see him in the next week, hopefully immediately after the holidays and also with Cardiology as instructed. Job ID: [id number]
[2019-03-27] MEDS ORDERED: Lisinopril 5 MG TAB PO SCH (09:00)
[2019-03-27] MEDS ORDERED: Digoxin 0.25 MG TAB PO SCH (09:00)
== END 2019-03-26 18:38 | disposition home or self-care (01) | DRG 175 ==
LOC: ERS 14:19 → ERHOLD 19:41 → IMCU/EMU 03-23 00:08
PROVIDERS: ADMIT Emergency Medicine; ATTEND Emergency Medicine
DX: I26.99 Other pulmonary embolism without acute cor pulmonale (principal); J96.21 Acute and chronic respiratory failure with hypoxia; Z68.42 Body mass index [BMI] 45.0-49.9, adult; J44.0 Chronic obstructive pulmonary disease with (acute) lower respiratory infection; I48.91 Unspecified atrial fibrillation; Z79.01 Long term (current) use of anticoagulants; Z82.49 Family history of ischemic heart disease and other diseases of the circulatory system; Z98.890 Other specified postprocedural states; R60.0 Localized edema; I16.0 Hypertensive urgency; G47.33 Obstructive sleep apnea (adult) (pediatric); E66.01 Morbid (severe) obesity due to excess calories; N28.1 Cyst of kidney, acquired; I12.9 Hypertensive chronic kidney disease with stage 1 through stage 4 chronic kidney disease, or unspecified chronic kidney disease; N18.2 Chronic kidney disease, stage 2 (mild); J20.9 Acute bronchitis, unspecified
CPT/HCPCS: 36415; 71045; 71275; 76770; 80048; 80053; 80076; 81001; 83605; 83735; 83880; 84443; 84484; 85014; 85018; 85025; 85049; 85379; 85610; 85730; 87040; 87070; 87205; 87633; 93005; 93306; 93970; 94640; 94760; 96365; 96366; 96367; 96372; J1650; J1956; J2920; J3475; J3490; J7512; J7620

== ENCOUNTER 2020-08-27 19:20 | Inpatient (IN) | payer MEDICAID ==
[2020-08-27 20:10] LABS: #Basophils 0.1 thou/uL (0.0-0.2); #Eosinphils 0.1 thou/uL (0.0-0.7); #Lymphocytes 1.7 thou/uL (1.20-3.40); #Monocytes 0.9 thou/uL (0.11-0.59); #Neutrophils 9.1 thou/uL (1.40-6.50); %Basophils 0.5 % (0.0-1.0); %Eosinophils 1.1 % (0.0-10.0); %Lymphocytes 14.2 % (21.0-51.0); %Monocytes 7.6 % (0.0-10.0); %Neutrophils 76.6 % (42.0-75.0); Hemoglobin 16.6 g/dL (14.0-18.0); Mean Corpuscular HGB CONC 33.9 g/dL (32.0-36.0); Mean Corpuscular Hemoglobin 38.6 pg (27.0-31.0); Mean Platelet Volume 6.6 fL (7.4-10.4); Platelet Count 279 thou/uL (130-400); RBC Distribution Width 14.3 % (11.5-14.5); Red Blood Cell (RBC) Count 4.31 mill/uL (4.70-6.10); White Blood Cell (WBC) Count 11.8 thou/uL (4.8-10.8)
[2020-08-27 20:28] LABS: MDiff Complete? YES; Macrocytosis SLIGHT = 6-15 cells (100X) (0-5/hpf); Platelet Morphology Comment Appears Adequate
[2020-08-27 20:46] LABS: ALT (SGPT) 29 U/L (8-55); AST (SGOT) 51 U/L (5-34); Albumin 3.4 g/dL (3.5-5.0); Alkaline Phosphatase 109 U/L (40-110); Anion Gap 15 mmol/L (10-20); BUN (Urea Nitrogen) 8 mg/dL (8.4-25.7); Bilirubin, Total 0.7 mg/dL (0.2-1.2); Calc. Creatinine Clearance 0 mL/min (70-130); Calcium 8.4 mg/dL (7.8-10.44); Carbon Dioxide 24 mmol/L (22-29); Chloride 99 mmol/L (98-107); Glucose 103 mg/dL (70-105); Potassium 4.3 mmol/L (3.5-5.1); Protein, Total 6.4 g/dL (6.0-8.3); Sodium 134 mmol/L (136-145)
[2020-08-27] MEDS ORDERED: Diltiazem 125 MG/25 ML ONE (20:57)
[2020-08-27 23:11] VITALS: BMI 70.8
[2020-08-28 00:03] LABS: Troponin I Less than 0.010 ng/mL (< 0.028)
[2020-08-28] MEDS ORDERED: Ondansetron PF 4 MG/2 ML Vial IVP PRN (00:15)
[2020-08-28 02:27] LABS: #Basophils 0.1 thou/uL (0.0-0.2); #Eosinphils 0.1 thou/uL (0.0-0.7); #Lymphocytes 1.6 thou/uL (1.20-3.40); #Monocytes 0.8 thou/uL (0.11-0.59); #Neutrophils 7.9 thou/uL (1.40-6.50); %Basophils 0.5 % (0.0-1.0); %Lymphocytes 15.4 % (21.0-51.0); %Neutrophils 75.1 % (42.0-75.0); Hemoglobin 15.7 g/dL (14.0-18.0); Mean Corpuscular HGB CONC 32.6 g/dL (32.0-36.0); Mean Corpuscular Hemoglobin 36.9 pg (27.0-31.0); Mean Platelet Volume 6.5 fL (7.4-10.4); Platelet Count 263 thou/uL (130-400); RBC Distribution Width 14.4 % (11.5-14.5); Red Blood Cell (RBC) Count 4.24 mill/uL (4.70-6.10); White Blood Cell (WBC) Count 10.5 thou/uL (4.8-10.8)
[2020-08-28] MEDS ORDERED: Diltiazem 125 MG in Sodium Chloride 0.9% 100 ML IVPB SCH (02:30)
[2020-08-28 02:55] LABS: Troponin I Less than 0.010 ng/mL (< 0.028)
[2020-08-28 02:57] LABS: Anion Gap 10 mmol/L (10-20); BUN (Urea Nitrogen) 9 mg/dL (8.4-25.7); Calc. Creatinine Clearance 185 mL/min (70-130); Calcium 8.4 mg/dL (7.8-10.44); Carbon Dioxide 23 mmol/L (22-29); Cardiac Risk 2.5 (Less than 4.5); Chloride 102 mmol/L (98-107); Cholesterol 95 mg/dl (< 200 Desired); Glucose 116 mg/dL (70-105); HDL Cholesterol 38 mg/dL (>60 Neg Risk); LDL Cholesterol, Calculated 45 mg/dL; Potassium 3.4 mmol/L (3.5-5.1); Sodium 132 mmol/L (136-145); Triglycerides 60 mg/dL (Less than 150)
[2020-08-28] MEDS ORDERED: Magnesium 2 GM/50 ML 2 GM in Premix Bag 1 BAG IVPB SCH (08:15)
[2020-08-28] MEDS ORDERED: Potassium Chloride 20 MEQ TAB PO SCH (08:15)
[2020-08-28] MEDS ORDERED: Enoxaparin Sodium 40 MG/0.4 ML SYRINGE SC SCH (09:00)
[2020-08-28] MEDS: Lisinopril 20 MG TAB PO SCH (10:10)
[2020-08-28] MEDS ORDERED: Enoxaparin Sodium 100 MG/ML SYRINGE SC SCH (10:15)
[2020-08-28] MEDS ORDERED: Enoxaparin Sodium 80 MG/0.8 ML SYRINGE SC SCH (10:15)
[2020-08-28 11:48] LABS: SARS-CoV-2 PCR by NAA Not Detected (NotDetected)
[2020-08-28] MEDS: Enoxaparin Sodium 100 MG/ML SYRINGE SC SCH (20:05)
[2020-08-28] MEDS: Enoxaparin Sodium 80 MG/0.8 ML SYRINGE SC SCH (20:05)
[2020-08-29] MEDS ORDERED: Diltiazem 125 MG in Sodium Chloride 0.9% 100 ML IVPB SCH (09:28)
[2020-08-29] MEDS: Enoxaparin Sodium 80 MG/0.8 ML SYRINGE SC SCH ×2 (09:37→20:10)
[2020-08-29] MEDS: Lisinopril 20 MG TAB PO SCH (09:37)
[2020-08-29] MEDS: Enoxaparin Sodium 100 MG/ML SYRINGE SC SCH ×2 (09:38→20:10)
[2020-08-30] MEDS: Enoxaparin Sodium 80 MG/0.8 ML SYRINGE SC SCH ×2 (07:57→21:23)
[2020-08-30] MEDS: Enoxaparin Sodium 100 MG/ML SYRINGE SC SCH ×2 (07:57→21:29)
[2020-08-30] MEDS: Lisinopril 20 MG TAB PO SCH (07:58)
[2020-08-30] MEDS ORDERED: Diltiazem 125 MG in Sodium Chloride 0.9% 100 ML IVPB PRN (11:25)
[2020-08-30] MEDS ORDERED: Magnesium 2 GM/50 ML 2 GM in Premix Bag 1 BAG IVPB SCH (16:30)
[2020-08-30] MEDS: Acetaminophen 325 MG TAB PO PRN (21:29)
[2020-08-31 05:33] LABS: Anion Gap 12 mmol/L (10-20); BUN (Urea Nitrogen) 10 mg/dL (8.4-25.7); Calc. Creatinine Clearance 234 mL/min (70-130); Calcium 8.4 mg/dL (7.8-10.44); Carbon Dioxide 24 mmol/L (22-29); Chloride 103 mmol/L (98-107); Glucose 89 mg/dL (70-105); Magnesium 1.7 mg/dL (1.6-2.6); Potassium 3.5 mmol/L (3.5-5.1); Sodium 135 mmol/L (136-145)
[2020-08-31] MEDS ORDERED: Potassium Chloride 20 MEQ TAB PO SCH (07:45)
[2020-08-31] MEDS: Magnesium Oxide 400 MG TAB PO SCH (08:59)
[2020-08-31] MEDS: Lisinopril 20 MG TAB PO SCH (08:59)
[2020-08-31] MEDS: Enoxaparin Sodium 80 MG/0.8 ML SYRINGE SC SCH (09:00)
[2020-08-31] MEDS: Acetaminophen 325 MG TAB PO PRN (09:00)
[2020-08-31] MEDS: Enoxaparin Sodium 100 MG/ML SYRINGE SC SCH (09:01)
[2020-08-31] MEDS: Apixaban 5 MG TAB PO SCH (20:18)
[2020-09-01 04:55] LABS: Hemoglobin 13.5 g/dL (14.0-18.0); Platelet Count 183 thou/uL (130-400)
[2020-09-01 05:24] LABS: Anion Gap 12 mmol/L (10-20); BUN (Urea Nitrogen) 9 mg/dL (8.4-25.7); Calc. Creatinine Clearance 242 mL/min (70-130); Calcium 8.5 mg/dL (7.8-10.44); Carbon Dioxide 23 mmol/L (22-29); Chloride 102 mmol/L (98-107); Glucose 86 mg/dL (70-105); Magnesium 1.6 mg/dL (1.6-2.6); Potassium 3.5 mmol/L (3.5-5.1); Sodium 133 mmol/L (136-145)
[2020-09-01] MEDS: Lisinopril 20 MG TAB PO SCH ×2 (08:16→21:18)
[2020-09-01] MEDS: Magnesium Oxide 400 MG TAB PO SCH (08:17)
[2020-09-01] MEDS: Apixaban 5 MG TAB PO SCH ×2 (08:17→21:18)
[2020-09-01] MEDS: Acetaminophen 325 MG TAB PO PRN (21:18)
[2020-09-02 09:03] VITALS: BP 140/86; TEMP 98.3
[2020-09-02] MEDS: Lisinopril 20 MG TAB PO SCH (09:04)
[2020-09-02] MEDS: Apixaban 5 MG TAB PO SCH (09:05)
[2020-09-02] MEDS: Magnesium Oxide 400 MG TAB PO SCH (09:05)
== END 2020-09-02 12:15 | disposition home or self-care (01) | DRG 309 ==
LOC: ERS 19:20 → 2NO 21:58
PROVIDERS: ADMIT Internal Medicine; ATTEND Family Medicine
DX: I48.92 Unspecified atrial flutter (principal); Z68.45 Body mass index [BMI] 70 or greater, adult; I10 Essential (primary) hypertension; F10.10 Alcohol abuse, uncomplicated; E87.6 Hypokalemia; E83.42 Hypomagnesemia; G47.33 Obstructive sleep apnea (adult) (pediatric); I87.8 Other specified disorders of veins; J20.9 Acute bronchitis, unspecified; I48.20 Chronic atrial fibrillation, unspecified; F17.220 Nicotine dependence, chewing tobacco, uncomplicated; E66.01 Morbid (severe) obesity due to excess calories; Z91.14 Patient's other noncompliance with medication regimen; Z86.711 Personal history of pulmonary embolism; Z79.899 Other long term (current) drug therapy
CPT/HCPCS: 36415; 71045; 80048; 80053; 80061; 83735; 83880; 84443; 84484; 85014; 85018; 85025; 85049; 93005; 93306; 96365; 96376; J1650; J3475; J3490; U0003; U0005

== ENCOUNTER 2020-09-15 14:44 | Emergency (ER) | payer MEDICAID ==
[2020-09-15 15:23] LABS: #Basophils 0.1 thou/uL (0.0-0.2); #Eosinphils 0.2 thou/uL (0.0-0.7); #Lymphocytes 1.6 thou/uL (1.20-3.40); #Neutrophils 7.3 thou/uL (1.40-6.50); %Basophils 0.5 % (0.0-1.0); %Eosinophils 2.4 % (0.0-10.0); %Lymphocytes 15.9 % (21.0-51.0); %Monocytes 9.7 % (0.0-10.0); %Neutrophils 71.6 % (42.0-75.0); Mean Corpuscular HGB CONC 32.8 g/dL (32.0-36.0); Mean Corpuscular Hemoglobin 36.8 pg (27.0-31.0); Mean Platelet Volume 7.1 fL (7.4-10.4); Platelet Count 185 thou/uL (130-400); Red Blood Cell (RBC) Count 4.08 mill/uL (4.70-6.10); White Blood Cell (WBC) Count 10.3 thou/uL (4.8-10.8)
[2020-09-15 15:44] LABS: ALT (SGPT) 15 U/L (8-55); AST (SGOT) 25 U/L (5-34); Albumin 3.2 g/dL (3.5-5.0); Alkaline Phosphatase 84 U/L (40-110); Anion Gap 12 mmol/L (10-20); BUN (Urea Nitrogen) 18 mg/dL (8.4-25.7); Bilirubin, Total 1.3 mg/dL (0.2-1.2); Calc. Creatinine Clearance 0 mL/min (70-130); Calcium 8.2 mg/dL (7.8-10.44); Carbon Dioxide 17 mmol/L (22-29); Chloride 105 mmol/L (98-107); Globulin 2.6 g/dL (2.4-3.5); Glucose 90 mg/dL (70-105); Potassium 3.7 mmol/L (3.5-5.1); Protein, Total 5.8 g/dL (6.0-8.3); Sodium 130 mmol/L (136-145)
== END 2020-09-15 19:27 | disposition home or self-care (01) ==
LOC: ERS 14:44
DX: I95.9 Hypotension, unspecified (principal); R42 Dizziness and giddiness; I48.91 Unspecified atrial fibrillation; I10 Essential (primary) hypertension; Z79.01 Long term (current) use of anticoagulants; Z79.899 Other long term (current) drug therapy
CPT/HCPCS: 36415; 71045; 80053; 84484; 85025; 93005